=== PATIENT | female | born 1950 | race Caucasian/White ===

== ENCOUNTER 2016-09-10 11:34 | Emergency (ER) | payer MEDICARE ==
--- NOTE | ~2016-09-10 | ER ---
PATIENT'S NAME: NORA PIMENTEL [facility] AGE: 66 Y [address] ROOM: [place] [address] LOCATION: [facility] ADMIT DATE: 09/10/2016 ER/Outpatient Report DISCHARGE DATE: 09/10/2016 FAMILY PHYSICIAN: Devora Shearer MD ATTENDING PHYSICIAN: Dany Marquez CHIEF COMPLAINT: Right-sided abdominal pain. HISTORY OF PRESENT ILLNESS: The patient arrives by ambulance from [place]. She has had poor feeling for 1 week and today developed vomiting several times. She has some right-sided abdominal pain associated with this. She states she has never had anything like this before. She states that she maybe has had some changes in urinary with some burning. No other findings acutely. She has not done anything to make this better and has not been seen for this issue. PAST MEDICAL HISTORY: Documented on the record and reviewed by me. SOCIAL HISTORY: Documented on the record and reviewed by me. MEDICATIONS: Documented on the record and reviewed by me. ALLERGIES: DOCUMENTED ON THE RECORD AND REVIEWED BY ME. REVIEW OF SYSTEMS: All systems reviewed and negative except as noted in the HPI. PHYSICAL EXAMINATION: VITAL SIGNS: Blood pressure 173/80, pulse 73, respiratory rate 16, temperature 97.6, and SpO2 is 97% on room air. Pain is moderate. GENERAL: Age-appropriate female, obese, no obvious pain or distress. Comfortable on the exam table. NEUROLOGIC: Awake and alert. GCS is 15. No focal deficits. No asymmetry. HEENT: Normocephalic, atraumatic. Eyes are PERRL. Oropharynx is clear. NECK: Supple. Trachea is midline. CHEST/HEART: Regular rate and rhythm. No murmurs. LUNGS: Clear to auscultation bilaterally. No rhonchi, wheezes, or rales. ABDOMEN: Soft, nontender, and nondistended. No rebound, guarding, or masses. PATIENT'S NAME: NORA PIMENTEL [facility] AGE: 66 Y [address] ROOM: [place], [place] [address] LOCATION: ED ADMIT DATE: 09/10/2016 ER/Outpatient Report DISCHARGE DATE: 09/10/2016 FAMILY PHYSICIAN: Devora Shearer MD ATTENDING PHYSICIAN: Dany Marquez BACK: Normal to inspection and palpation along the spine. No true CVA tenderness. There is focal tenderness with pressure over the right lateral ribs 9, 10, and 11. No skin abnormalities. EXTREMITIES: Warm and well perfused. No obvious deformities or edema. SKIN: Clean, dry, and intact. LABORATORY DATA AND X-RAYS: CT of the abdomen without acute abnormality, possible ureteral stone in the bladder though unclear. No other acute findings. Labs: Urinalysis: 25 leukocytes, 10-20 wbc's. No rbc's, epithelial, or bacteria. Procalcitonin is undetectable. EKG is sinus rhythm, rate of 75 with normal intervals and axis. No ischemia. No comparison immediately available. CBC without appreciable abnormality. Lactate is 4.2. CMS without abnormality of electrolytes or creatinine. GFR is 49, BUN elevated 25. No LFT abnormalities. Amylase, lipase, and GGT within normal limits. CRP is below detectable threshold. IMPRESSION: Right-sided abdominal pain of unclear etiology. EMERGENCY DEPARTMENT COURSE: The patient is seen and evaluated as above. Her presentation is most consistent with ureterolithiasis though there is no blood in the UA. She is given fentanyl and Zofran for pain and nausea with complete resolution of her symptoms for a while. They did come back a little bit and it was a different character in sensation than prior. Urinalysis is not consistent with infection, culture pending, with pyuria. The overall presentation is reassuring based on vital signs and ability to control symptoms. She does have a slight azotemia with elevation of BUN and the slight decrease in her GFR. No evidence of true CE. The lactate was ascribed to her multiple episodes of vomiting this morning. This was treated with fluids. She remained hemodynamically stable. No other signs of infection. I discussed the case with Dr. Shearer, the patient's primary care provider, she will see her later this week if not markedly improved. The patient at home with [place] and Zofran for symptom management. All questions were answered, and the patient was discharged in stable condition. MD ADELINA ALMENDAREZ/priyank PATIENT'S NAME: PIMENTELNORA [facility] AGE: 66 Y [address] ROOM: [place] [id number] LOCATION: [facility] ADMIT DATE: 09/10/2016 ER/Outpatient Report DISCHARGE DATE: 09/10/2016 FAMILY PHYSICIAN: Devora Shearer MD ATTENDING PHYSICIAN: Dany Marquez /[id number] d: [id number]/10/[id number] t: 09/24/16 0700, OUTPATIENT REPORT
[2016-09-10 12:05] LABS: BASOPHIL % 0.3 %; EOSINOPHIL # 0.2 K/uL (0.0-0.5); EOSINOPHIL % 1.7 %; HEMATOCRIT 41.8 % (33.0-46.0); HEMOGLOBIN 13.5 g/dL (10.0-15.0); IMMATURE GRANULOCYTE % 0.2 %; LYMPHOCYTE # 2.6 K/uL (0.8-4.0); LYMPHOCYTE % 28.8 %; MCH 30.6 pg (27.0-34.0); MCHC 32.3 gm/dL (32.0-36.5); MCV 94.8 fl (83.0-98.0); MONOCYTE # 0.6 K/uL (0.0-1.0); MONOCYTE % 6.6 %; NEUTROPHIL # (ANC) 5.6 K/uL (1.8-7.8); NEUTROPHIL % 62.4 %; NRBC % 0 /100WBC (0-0.00); PLATELET COUNT 245 K/uL (150-450); RBC 4.41 M/uL (3.50-5.50); RDW-CV 12.1 % (11.9-14.6)
[2016-09-10 12:15] LABS: INR - (THERAPEUTIC) 0.88 (0.92-1.07); PROTIME 9.2 SECONDS (9.8-11.4); PTT 23 SECONDS (25-32)
[2016-09-10 12:26] LABS: ALBUMIN 4.1 gm/dL (3.5-5.0); ALK PHOS 43 IU/L (33-138); ALT 38 IU/L (12-78); ANION GAP 11.4 (10.0-19.0); AST 25 IU/L (10-40); BLOOD UREA NITROGEN 25 mg/dL (6-24); CALCIUM 9.7 mg/dL (8.5-10.5); CHLORIDE 104 mMol/L (96-110); CO2 29 mMol/L (22-32); CREATININE 1.1 mg/dL (0.5-1.1); ESTIMATED GFR (MDRD EQUATION) 49; POTASSIUM 4.4 mMol/L (3.7-5.1); SODIUM 140 mMol/L (135-145); TOTAL BILIRUBIN 0.6 mg/dL (0.0-1.5)
[2016-09-10 12:26] LABS: BILIRUBIN URINE NEGATIVE (NEGATIVE); BLOOD URINE NEGATIVE /UL (NEGATIVE); COLOR URINE YELLOW (YELLOW); GLUCOSE URINE NEGATIVE (NEGATIVE); KETONE URINE NEGATIVE (NEGATIVE); LEUKOCYTES URINE 25 /UL (NEGATIVE); NITRITE URINE NEGATIVE (NEGATIVE); PROTEIN URINE NEGATIVE (NEGATIVE); SPEC GRAVITY URINE 1.015 (1.003-1.035); TURBIDITY URINE CLEAR (CLEAR); UROBILINOGEN URINE NORMAL (NORMAL)
[2016-09-10 12:37] LABS: BACTERIA URINE NEGATIVE (NEGATIVE); EPITHELIAL URINE NEGATIVE #/HPF (NEGATIVE); HYALINE CAST URINE 0-2 #/LPF (NEGATIVE); RBC URINE NEGATIVE #/HPF (NEGATIVE)
== END 2016-09-10 14:40 | disposition disaster alternative care site (69) ==
LOC: GMED 11:34
PROVIDERS: Emergency Medicine
DX: R10.9 Unspecified abdominal pain (principal); E11.9 Type 2 diabetes mellitus without complications; N39.0 Urinary tract infection, site not specified; Z88.5 Allergy status to narcotic agent; Z90.710 Acquired absence of both cervix and uterus; Z79.899 Other long term (current) drug therapy
CPT/HCPCS: J2405; J3010; J7030